=== PATIENT | born 1995 | race Caucasian/White ===

== ENCOUNTER 2023-03-30 18:13 | Outpatient (REF) | payer OTHER, SELFPAY ==
--- NOTE | ~2023-03-30 | MR_ITS ---
EXAMINATION: MR BRAIN WITHOUT CONTRAST CLINICAL INFORMATION: left leg sensory anesthesia. Family history of Behcet COMPARISON: None. TECHNIQUE: MRI of the brain was obtained using routine sequences without contrast. FINDINGS: No acute infarct. No acute intracranial hemorrhage or extra-axial fluid collection. The ventricles and sulci are normal in size and configuration without significant volume loss or hydrocephalus. No parenchymal signal abnormality. No mass lesion, mass effect, or herniation pattern. Normal intracranial arterial and dural venous sinus flow voids. Normal appearance of the midline structures. The orbits are grossly unremarkable. Trace scattered paranasal sinus mucosal disease with several retention cysts in the left maxillary sinus. No mastoid effusion. Normal marrow signal. Somewhat nodular soft tissue within the paramidline nasopharynx most suggestive of adenoidal tonsillar hyperplasia. MR/MR head/brain wo con IMPRESSION: Unremarkable MRI of the brain.
== END 2023-03-30 18:14 | disposition home or self-care (01) ==
LOC: HO.MRI 18:13
PROVIDERS: Visit Provider Internal Medicine
DX: R20.0 Anesthesia of skin (principal)
CPT/HCPCS: 70551